=== PATIENT | male | born 1970 | race Two or more races ===

== ENCOUNTER 2020-01-22 22:42 | Emergency (ER) | payer SELFPAY ==
--- NOTE | 2020-01-22 23:41 | ER Document Report ---
ED Medical Screen (RME) - General Chief Complaint: Abdominal Pain >50 Stated Complaint: LOWER BACK PAIN/HEADACHE/ABDOMINAL PAIN Time Seen by Provider: 01/22/20 23:35 Mode of Arrival: Wheelchair Information source: Patient Notes: 49-year-old male presented to ED for complaint of pain across the abdomen into the back just below the rib cage. He states he started today with muscle aches all over. He states he drinks Pepsi while he is working. He states that short of breath is because of how much pain he is in. He states his pain is a level 5. We will give him Flexeril at this time and he get blood and urine and have him seen by one of the providers. He states he does not even remember the last time he went to the doctor so he does not have any past medical history that he knows of. He states he does smoke a pack a day but does not drink or use any illicit drugs. I have greeted and performed a rapid initial assessment of this patient. A comprehensive ED assessment and evaluation of the patient, analysis of test results and completion of medical decision making process will be conducted by an additional ED providers. Physical Exam - Vital signs Vitals: Temp Pulse Resp BP Pulse Ox 98.9 F 105 H 17 167/103 H 97 01/22/20 22:53 01/22/20 22:53 01/22/20 22:53 01/22/20 22:53 01/22/20 22:53 Course - Vital Signs Vital signs: Temp Pulse Resp BP Pulse Ox 98.9 F 105 H 17 167/103 H 97 01/22/20 22:53 01/22/20 22:53 01/22/20 22:53 01/22/20 22:53 01/22/20 22:53
[2020-01-22] MEDS ORDERED: IBUPROFEN 600 MG TABLET PO ONE (23:42)
[2020-01-22] MEDS ORDERED: CYCLOBENZAPRINE HCL 10 MG TABLET PO ONE (23:44)
[2020-01-23 00:26] LABS: ABSOLUTE LYMPHOCYTES (AUTO) 1.6 10^3/uL (0.5-4.7); ABSOLUTE MONOCYTES (AUTO) 0.7 10^3/uL (0.1-1.4); ABSOLUTE NEUT (AUTO) 11.3 10^3/uL (1.7-8.2); BASOPHILS % (AUTO) 0.2 % (0-2); EOSINOPHILS % (AUTO) 0.2 % (0-6); HEMATOCRIT 42.5 % (37.9-51.0); HEMOGLOBIN 14.6 g/dL (13.5-17.0); LYMPHOCYTES % (AUTO) 11.5 % (13-45); MEAN CORPUSCULAR HEMOGLOBIN 31.4 pg (27.0-33.4); MEAN CORPUSCULAR HGB CONC 34.3 g/dL (32.0-36.0); MEAN CORPUSCULAR VOLUME 92 fl (80-97); MONOCYTES % (AUTO) 5.3 % (3-13); PLATELET COUNT 251 10^3/uL (150-450); RED BLOOD COUNT 4.64 10^6/uL (4.35-5.55); RED CELL DISTRIBUTION WIDTH 12.5 % (11.5-14.0); SEGMENTED NEUTROPHILS % (AUTO) 82.8 % (42-78); TOTAL CELLS COUNTED % (AUTO) 100 %; WHITE BLOOD COUNT 13.7 10^3/uL (4.0-10.5)
[2020-01-23 00:43] LABS: ALBUMIN 4.9 g/dL (3.5-5.0); ALKALINE PHOSPHATASE 108 U/L (38-126); ANION GAP 9 (5-19); ASPARTATE AMINO TRANSFERASE 42 U/L (17-59); BILIRUBIN,DIRECT 0.1 mg/dL (0.0-0.4); BLOOD UREA NITROGEN 12 mg/dL (7-20); CALCIUM 9.5 mg/dL (8.4-10.2); CARBON DIOXIDE 25 mmol/L (22-30); CHLORIDE 102 mmol/L (98-107); CREATINE KINASE 439 U/L (55-170); GLUCOSE 145 mg/dL (75-110)
[2020-01-23 01:03] LABS: APPEARANCE,URINE CLEAR; BILIRUBIN,URINE NEGATIVE (NEGATIVE); COLOR,URINE YELLOW; GLUCOSE, URINE NEGATIVE (NEGATIVE); KETONES,URINE NEGATIVE (NEGATIVE); LEUKOCYTE ESTERASE,URINE NEGATIVE (NEGATIVE); NITRITE,URINE NEGATIVE (NEGATIVE); PROTEIN,URINE NEGATIVE (NEGATIVE); URINE SPECIFIC GRAVITY 1.023
[2020-01-23] MEDS ORDERED: NORMAL SALINE 1000 ML 1,000 ML IV ONE (02:41)
[2020-01-23] MEDS ORDERED: HYDROMORPHONE HCL INJ/PF 2 MG/ML AMPULE IV ONE ×2 (02:41→06:06)
[2020-01-23] MEDS ORDERED: ONDANSETRON HCL INJ/PF 4 MG/2 ML SDV IV ONE (02:42)
--- NOTE | 2020-01-23 02:52 | ER Document Report ---
ED General - General Chief Complaint: Abdominal Pain >50 Stated Complaint: LOWER BACK PAIN/HEADACHE/ABDOMINAL PAIN Time Seen by Provider: 01/22/20 23:35 Mode of Arrival: Wheelchair - [facility] Context: Time:023 Chief Complaint: [Headache, chest pain, abdominal pain, back pain] [This is a 49-year-old male presenting to the emergency department complaining of headache, chest pain, abdominal pain, and back pain. Patient is , Japanese-speaking and appears to be in acute distress. He is writhing back and forth on the bed does not appear to be able to sit still. Until Martti becomes available and the patient is a little more comfortable for now I have chosen to use the patient's Peruvian-speaking friend to help with interpretation. Patient reportedly used to drink alcohol but no longer does so. Patient smokes a pack cigarettes a day but denies illegal drug use. Patient denies prior history of abdominal surgeries ] History obtained from [patient and patient's friend] Symptoms began:[1730] Onset: [Sudden] Timing: [Sudden] Quality: [Sharp] Intensity: [5 out of 5] Location: [Head, chest, abdomen, back] Radiation: [Denies] [The pain does not migrate to a new location.] Aggravating factors: [none] Relieving factors: [none] [Denies] SOB [Denies] nausea [Denies] vomiting [Denies] sweats [Denies] fever [Denies] cough [Denies] calf or leg swelling or pain Past Medical History - General Information source: Patient, Friend - Social History Smoking Status: Current Every Day Smoker Frequency of alcohol use: none in 6 mnths Family History: Reviewed & Not Pertinent Review of Systems - Review of Systems Notes: Review of systems as below unless otherwise stated in HPI. CONSTITUTIONAL [No] fever, [No] chills. EYES [No] eye pain. ENT [No] URI symptoms, [No] sore throat, [No] ear pain. CARDIOVASCULAR Positive chest pain, [No] palpitations, [No] edema. RESPIRATORY [No] Cough, [No] SOB, [No] wheezing. GASTROINTESTINAL Positive abdominal pain, [No] nausea, [No] Diarrhea, [No] Vomiting, [No] constipation, [No] melena, [No] rectal bleeding. GENITOURINARY [No] dysuria, [No] urinary frequency, [No] hematuria, [No] urinary urgency MUSCULOSKELETAL Positive back pain. SKIN [No] Rash. NEUROLOGIC [No] Headache, [No] recent seizures, [No] paralysis,[No] parathesias. ENDOCRINE [No] polyuria. HEMO/LYMPATIC [No] easy brusing PSYCHIATRIC [No] depression. Physical Exam - Vital signs Vitals: Temp Pulse Resp BP Pulse Ox 98.9 F 105 H 17 167/103 H 97 01/22/20 22:53 01/22/20 22:53 01/22/20 22:53 01/22/20 22:53 01/22/20 22:53 - Notes Notes: CONSTITUTIONAL [Vital signs reviewed, Patient appears very uncomfortable and is rocking and writhing in pain on stretcher. Patient is awake and alert HEAD [Atraumatic, Normocephalic.] EYES [Eyes are normal to inspection, No discharge from eyes, Extraocular muscles in tact, Sclera are normal, Conjunctiva are normal.] ENT [External ears normal to inspection, Nose examination normal, Mouth normal to inspection.] NECK [Normal ROM, No jugular venous distention, No meningeal signs, ] RESPIRATORY CHEST [Chest is nontender, Breath sounds normal, No respiratory distress.] CARDIOVASCULAR Tachycardia no murmurs, Normal S1 S2, No rub, No gallop.] ABDOMEN [Abdomen is nontender, No pulsatile masses, No other masses, Bowel sounds normal, No distension, No peritoneal signs, No hernias.] BACK [There is no CVA Tenderness, There is no tenderness to palpation, Normal in spection.] UPPER EXTREMITY [Inspection normal, No cyanosis, No clubbing, No edema, LOWER EXTREMITY [Inspection normal, No cyanosis, No clubbing, No edema, No calf tenderness, NEURO [No focal motor deficits, No focal sensory deficits, Speech normal.] SKIN [Skin is warm, Skin is dry, Skin is normal color.] PSYCHIATRIC Anxious affect. ] Course - Re-evaluation Re-evalutation: 01/23/20 06:08 Larry special shopper was used to discuss results of ED MSE with patient. Patient was informed to his diagnosis, prescriptions that he will be given, need to drink more water instead of Pepsi and Coca-Cola. All questions were answered pr ior to discharge. Emergency signs and symptoms, reasons to return to the emergency department discussed with patient. - Vital Signs Vital signs: Temp Pulse Resp BP Pulse Ox 98.9 F 105 H 20 149/104 H 93 01/22/20 22:53 01/22/20 22:53 01/23/20 05:00 01/23/20 03:01 01/23/20 05:00 - Laboratory Result Diagrams: 01/23/20 00:15 01/23/20 00:15 Laboratory results interpreted by me: 01/23/20 01/23/20 01/23/20 00:15 00:15 00:15 WBC 13.7 H Lymph % (Auto) 11.5 L Absolute Neuts (auto) 11.3 H Seg Neutrophils % 82.8 H Sodium 136.0 L Glucose 145 H Creatine Kinase 439 H Urine Urobilinogen 2.0 H Urine Ascorbic Acid 40 H - Diagnostic Test Radiology reviewed: Reports reviewed - EKG Interpretation by Me Additional EKG results interpreted by me: 01/23/20 03:56 EKG obtained on 01/23/2020 at 0353 hrs. was interpreted by this MD. Findings: Si nus bradycardia, rate 59, UT interval appears within normal limits, normal axis, P waves preceding QRS complexes, right bundle branch block is present, QTC is 424, there are no obvious patterns of ST segment elevation, depression or reciprocal changes to suggest acute myocardial ischemia or infarction. There is no prior EKG available for comparison. Impression: Sinus bradycardia with nonspecific ST segments and right bundle branch block Discharge - Discharge Clinical Impression: Rhabdomyolysis Qualifiers: Rhabdomyolysis type: non-traumatic Qualified Code(s): M62.82 - Rhabdomyolysis Condition: Stable Disposition: HOME, SELF-CARE Instructions: Dehydration ([facility]), Oral Narcotic Medication ([facility]) Additional Instructions: Return to the Emergency Department without delay if any worse. HOME CARE INSTRUCTIONS & INFORMATION: Thank you for choosing us for your medical needs. We hope you're satisfied with the care you received. After you leave, you must properly care for your problem and, at the same time, observe its progress. Any condition can change. Some illnesses can change rapidly over hours or days. If your condition worsens, return to the Emergency Department or see your physician promptly. ABOUT YOUR X-RAYS AND EKG'S: If you had an EKG or X-rays taken, they have been read by the Emergency Physician. The X-rays and EKG's will also be read by a Radiologist or Cadmium Plater within 24 hours. If discrepancies are noted, you will be notified by telephone. Please be certain the ED has a correct telephone number & address where you can be reached. Also, realize that some fractures or abnormalities do not show up on initial X-rays. If your symptoms continue, see your physician. ABOUT YOUR LABORATORY TEST: If you had laboratory tests, the results have been reviewed by the Emergency Physician. Some test results (for example cultures) may not be available for several days. You will be contacted if any test result shows you need additional treatment. Please be certain the ED has a correct telephone number and address where you can be reached. ABOUT YOUR MEDICATIONS: You will receive instructions on how to take your medicine on the prescription label you receive. Additional information may be provided by the Pharmacy. If you have questions afterwards, call the ED for clarification or further instructions. Some prescribed medications may cause drowsiness. Do not perform tasks such as driving a car or operating machinery without consulting your Pharmacist. If you feel you need a refill of pain medication, your condition will need re-evaluation. Please do not call for a refill of any medication. ABOUT YOUR SIGNATURE: Signature of this document acknowledges to followin. Understanding that you received emergency treatment and that you may be released before al medical problems are known or treated. Please be certain the ED has a correct phone number & address where you can be reached. 2. Acknowledgement that you will arrange for follow-up care as recommended. 3. Authorization for the Emergency Physician to provide information to your follow-up Physician in order to maximize your care. AT ANY TIME, IF YOUR SYMPTOMS CHANGE SIGNIFICANTLY OR WORSEN OR YOU DEVELOP NEW SYMPTOMS, RETURN TO THE EMERGENCY DEPARTMENT IMMEDIATELY FOR RE-EVALUATION. OUR GOAL IS TO PROVIDE EXCELLENT MEDICAL CARE! WE HOPE THAT WE HAVE MET YOUR EXPECTATIONS DURING YOUR EMERGENCY DEPARTMENT SIT AND THAT YOU FEEL YOU HAVE RECEIVED EXCELLENT CARE! Prescriptions: Hydrocodone/Acetaminophen [[place] 5-325 mg Tablet] 1 tab PO Q6HP PRN #10 tablet PRN Reason: pain Print Language: Japanese
--- NOTE | 2020-01-23 04:13 | RADIOLOGY REPORT (SQ) ---
CLINICAL HISTORY: chest back abdominal pain COMPARISON: None. 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 MIPS reconstructions were generated. This exam was performed according to our departmental dose-optimization program, which includes automated exposure control, adjustment of the mA and/or kV according to patient size and/or use of iterative reconstruction technique. FINDINGS: Vascular: Thoracic aorta is normal in course and caliber without aneurysm or dissection. Pulmonary arteries are adequately opacified without acute or chronic filling defects. Abdominal aorta is normal in course and caliber without aneurysm. Pelvic arteries are patent without aneurysm or occlusion. Chest: The heart is mildly enlarged. There is no pericardial effusion. Intrathoracic lymph nodes are not enlarged. There is no pleural effusion, pleural thickening or pneumothorax. Central airways are patent. Lungs are clear with no consolidation, mass or interstitial lung disease. Abdomen: Liver is fatty in attenuation. There is no biliary dilatation. Gallbladder is normal in appearance. The pancreas and spleen are normal in appearance. The adrenal glands and kidneys are unremarkable. There is no free air. There is no retroperitoneal adenopathy. Pelvis: There is no bowel obstruction. Urinary bladder is unremarkable. There is no free fluid. Appendix is normal. Skeleton: There are no acute osseous findings. No suspicious bony lesions. IMPRESSION: No definite acute process.
--- NOTE | 2020-01-23 04:19 | RADIOLOGY REPORT (SQ) ---
CLINICAL HISTORY: chest pain COMPARISON: None. 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 Lungs are clear without consolidation, atelectasis, mass or edema. There is no pleural effusion. There is no pneumothorax. There are no acute osseous findings. IMPRESSION: Clear lungs.
[2020-01-23] MEDS ORDERED: KETOROLAC TROMETHAMINE INJ/PF 30 MG/1 ML SDV IV ONE (05:03)
[2020-01-23 05:16] VITALS: BP 149/104
[2020-01-23] MEDS ORDERED: DIAZEPAM INJ 10 MG/2 ML DISP.SYRIN IV ONE (05:38)
[2020-01-23] MEDS ORDERED: HYDROCODONE/ACETAMINOPHEN 5-325 MG (6 TAB/ER DISP) PO PRN (06:06)
--- NOTE | 2020-01-23 08:33 | EKG REPORT ---
SEVERITY:- ABNORMAL ECG - SINUS BRADYCARDIA INCOMPLETE RIGHT BUNDLE BRANCH BLOCK LEFT VENTRICULAR HYPERTROPHY : Confirmed by: Medhat Hawley MD 23-Jan-2020 08:33:07
== END 2020-01-23 06:38 | disposition home or self-care (01) ==
LOC: ER 22:42
DX: M62.82 Rhabdomyolysis (principal); R00.1 Bradycardia, unspecified; I45.10 Unspecified right bundle-branch block; R51.9 Headache, unspecified; R07.9 Chest pain, unspecified; R10.9 Unspecified abdominal pain; M54.9 Dorsalgia, unspecified; F17.210 Nicotine dependence, cigarettes, uncomplicated; Z20.828 Contact with and (suspected) exposure to other viral communicable diseases
CPT/HCPCS: 93005; 96376; 99285; 96361; 96374; 96375; 86900; 86901; 36415; 87086; 86850; 80307; 82550; 83690; 83735; 85025; 87635; 80053; 81001; 71045; 71275; 74174; 93010; J3360; J1885; J1170; J2405; J7030; C9803